=== PATIENT | male | born 2000 | race Caucasian/White ===

== ENCOUNTER 2021-01-18 17:00 | Emergency (ER) | payer OTHER ==
[2021-01-18] MEDS ORDERED: BACITRAYCIN PLU28 GM TP (17:51)
== END 2021-01-18 18:07 | disposition home or self-care (01) ==
LOC: ER1 17:00
DX: L08.9 Local infection of the skin and subcutaneous tissue, unspecified (principal); Z88.8 Allergy status to other drugs, medicaments and biological substances; Z88.1 Allergy status to other antibiotic agents
CPT/HCPCS: 99283